=== PATIENT | female | born 1965 | race Caucasian/White ===

== ENCOUNTER → 2016-07-21 | Outpatient (CLI) | payer BC | LOC: RAD 08:39 | PROVIDERS: ATTEND Family Medicine | DX: N64.4 Mastodynia (principal) | CPT/HCPCS: 76642; G0204 ==

== ENCOUNTER 2016-08-07 10:02 | Day surgery (SDC) | payer BC ==
[~2016-08-07] VITALS: Ht 162.6 cm; Wt 54.0 kg
[~2016-08-07 10:02] MED LIST: LACTATED RINGERS 1,000 ML IV SCH; LIDOCAINE/EPINEPHRINE 1% 1:100,000 (XYLOCAINE) 30 ML VIAL INJ ONE; SODIUM CHLORIDE FLUSH 3 ML SYR IV PRN; ceFAZolin 2,000 MG in WATER (STERILE) FOR INJECTION 20 ML IV SCH
[2016-08-07 10:20] VITALS: BP 141/89
[2016-08-07] MEDS ORDERED: MIDAZOLAM 2 MG/2 ML (VERSED) VIAL ONE (11:45)
[2016-08-07] MEDS ORDERED: ALFENTANIL 500 MCG/ML (ALFENTA) 5 ML AMP IV ONE (11:46)
[2016-08-07] MEDS ORDERED: diphenhydrAMINE 50 MG/ML INJ (BENADRYL) ONE (11:59)
[2016-08-07] MEDS ORDERED: PROPOFOL 20 ML IV ONE (11:59)
[2016-08-07] MEDS ORDERED: ONDANSETRON 2 MG/ML (Z0FRAN) 2 ML VIAL ONE (11:59)
[2016-08-07 12:18] VITALS: BP 129/85
[2016-08-07] MEDS ORDERED: FLUMAZENIL (ROMAZICON) 0.1 MG/ML 5 ML VIAL ONE (12:22)
[2016-08-07 12:40] VITALS: BP 131/94
[2016-08-07] MEDS ORDERED: KETOROLAC 30 MG/ML (TORADOL) 1 ML VIAL IV PRN (12:50)
[2016-08-07] MEDS ORDERED: ONDANSETRON 2 MG/ML (Z0FRAN) 2 ML VIAL IV PRN (12:50)
[2016-08-07] MEDS ORDERED: METOCLOPRAMIDE 10 MG/2 ML (REGLAN) VIAL IV PRN (12:50)
[2016-08-07] MEDS ORDERED: morphine INJ 4 MG/ML 1 ML SYRINGE IV PRN (12:50)
[2016-08-07 12:59] VITALS: BP 127/80
[2016-08-07 13:16] VITALS: BP 123/77
[2016-08-07 13:36] VITALS: BP 125/78
== END 2016-08-07 13:39 | disposition home or self-care (01) ==
LOC: ASC 10:02
PROVIDERS: ATTEND Surgery
DX: K43.2 Incisional hernia without obstruction or gangrene (principal)
CPT/HCPCS: 36415; 49560; 84703; J0690; J1200; J2250; J3490; J7120